=== PATIENT | female | born 1975 | race Caucasian/White ===

== ENCOUNTER 2018-05-08 08:58 | Day surgery (SDC) | payer BC ==
--- NOTE | 2018-05-08 06:41 | History and Physical - [place] ---
CHIEF COMPLAINT/HISTORY OF CHIEF COMPLAINT: This patient presents with a history of intractable lumbar radiculopathy and a spinal opioid infusion system infusing Hydromorphone and Bupivacaine. Over the last refill this patient's pump has been identified with battery depletion. She is here for pump battery change without perimeter change. PAST MEDICAL HISTORY: Noncontributory. PAST SURGICAL HISTORY: Tubal ligation, gallbladder surgery, carpal tunnel release, ankle surgery and pump implant. MEDICATIONS ON ADMISSION: List to be provided. ALLERGIES: None. FAMILY/PSYCHOSOCIAL HISTORY: Social history - Caffeine. Family history - Noncontributory. SYSTEMS REVIEW: The patient is appropriate in no acute distress. The remainder of the systems review is positive for gastroesophageal reflux, degenerative arthritis, chronic back pain, depression and anxiety disorder. PHYSICAL EXAMINATION: From chart height is 5'4", weight is 200 pounds. No vital signs. HEENT: Within normal limits. LUNGS: Clear. HEART: Regular rate and rhythm. ABDOMEN: Nontender. MUSCULOSKELETAL: Examination of the musculoskeletal system shows the pump in the left posterior gluteal margin. The incisional site is intact. There is no breakdown or cellulitis. Chronic pain pattern is low back with a lower extremity extension. There is mild motor and sensory field abnormalities of the right lower extremity. An assistive device is used for ambulation. NEUROLOGIC: Cranial nerves are intact. IMPRESSION: 1. LUMBAR RADICULOPATHY, ICD-10 CODE M54.16 AND M54.17. 2. IMPLANTED SPINAL OPIOID INFUSION SYSTEM WITH HYDROMORPHONE AND BUPIVACAINE. PLAN: The patient is here for pump battery change without perimeter change on an outpatient basis. JOB NUMBER: [id number] [facility]
[~2018-05-08 08:58] MED LIST: ACETAMINOPHEN 1,000 MG/100 ML BTL IV ONE; FAMOTIDINE 20MG TABLET PO ONE; HYDROMORPHONE HCL 0.8 GM in 0.9 % SODIUM CHLORIDE 10ML VIA 40 ML IV ONE; HYDROMORPHONE PF 2MG/ML AMP 0.008 MG in 0.9 % SODIUM CHLORIDE 10ML VIA 0.996 ML IV ONE; MECLIZINE 25 MG TABLET PO ONE; METOCLOPRAMIDE 10 MG TABLET PO ONE
[2018-05-08] MEDS ORDERED: FENTANYL PF 100MCG/2ML VIAL IV ONE (08:59)
[2018-05-08] MEDS ORDERED: 0.9 % SODIUM CHLORIDE 10 ML VIAL IVP ONE (08:59)
[2018-05-08] MEDS ORDERED: PROPOFOL 10 MG/ML VIAL IV ONE (08:59)
[2018-05-08] MEDS ORDERED: BUPIVACAINE 0.5% W/EPI MPF 30 ML VIAL IVP ONE (08:59)
[2018-05-08] MEDS ORDERED: LIDOCAINE 2% MDV (20MG/ML) 20ML VIAL IV ONE (08:59)
[2018-05-08] MEDS ORDERED: CEFAZOLIN 1G VIAL IM ONE (08:59)
[2018-05-08] MEDS ORDERED: LIDOCAINE 1% W/EPI 1:200,000 MPF 30ML SQ ONE (08:59)
[2018-05-08] MEDS ORDERED: MIDAZOLAM HCL 2MG/2ML VIAL IV ONE (08:59)
--- NOTE | 2018-05-10 14:40 | Operative Note ---
DATE: 05/08/2018. PREOPERATIVE DIAGNOSES: 1. INTRACTABLE LUMBAR RADICULOPATHY, ICD-10 CODE M54.16 AND M54.17. 2. SPINAL OPIOID INFUSION SYSTEM WITH HYDROMORPHONE WITH BATTERY DEPLETION. PROCEDURES: 1. Fluoroscopically guided removal and replacement of programmable pump at the left posterior gluteal margin. 2. Incision, subcutaneous dissection, and revision of indwelling spinal catheter. 3. Diagnostic myelography with radiologic supervision and interpretation for programming of pump to deliver hydromorphone with continuous infusion at 4.2 mg a day. SURGEON: Gregory Govea D.O. ANESTHESIA: Local sedation. ANESTHESIA PROVIDER: Carlo Cordova CRNA. INDICATIONS: This patient presents with a history of intractable lumbar radiculopathy and a spinal opioid infusion system infusing hydromorphone. Over the last number of programming and refills, battery depletion was identified. She is here for battery change. DESCRIPTION OF PROCEDURE: Intravenous lines, vital sign monitoring, and intravenous sedation. Prepped and draped with technique. The patient was positioned prone. The pump pouch at the left posterior gluteal margin was marked and infiltrated. An incision was made and subcutaneous dissection was conducted to the Dacron sleeve. The Dacron was opened, and the pump was exteriorized. A redundant, fibrosed and knotted catheter was identified in the posterior pouch. The catheter was from the pump and then the kinked, fibrosed segment was resected and removed. A new catheter segment was then interfaced and revised into the indwelling catheter. The revised segment was then interfaced to a new 40 mL programmable pump which was placed onto the field prefilled with hydromorphone. With the new pump catheter connection made , the pump was placed into the Dacron sleeve and secured to the fascia with nonabsorbable suture using a pump eyelet. With the pump in the pouch, a 24- gauge Silva needle was inserted into the access port. A total of 1.0 mL of catheter contents was aspirated, clearing the catheter of opioid and cerebrospinal fluid mixture. Diagnostic myelography was then performed. The resulting flow characteristics were noted to be smooth and linear in the space. No obstructions or redirections were identified. The catheter was fully functional. The incision was then closed with Stratafix suture with #2-0 for the fascia and #3-0 for the skin. Dermabond closure approximated the edges of the wound. The pump was then programmed to deliver by continuous infusion hydromorphone at 4.2 mg a day. All alarm values were reset. She was transported to the recovery room stable with no side effects from the procedure or the sedation. She was monitored until stable and was then discharged. DISCHARGE INSTRUCTIONS: 1. The sites are to remain clean and dry. No showering or bathing in any way that would disrupt dressings. If this happens, contact the clinic. 2. Standard medications to be resumed including Levaquin the antibiotic 500 mg once a day for 14 days. 3. The office is to contact the patient in 24 hours to set up a time in the next seven to ten days to evaluate the site. 4. All other instructions provided. 5. Spinal opioid side effects including respiratory depression, nausea, vomiting, constipation, urinary retention, lightheadedness, and rash have all been discussed and reviewed. If she experiences any of these symptoms she should contact the clinic immediately or go to a local emergency room. JOB NUMBER: [id number] cc: Carlos HERRON
== END 2018-05-08 12:10 | disposition home or self-care (01) ==
LOC: SUR 08:58
PROVIDERS: ATTEND Pain Medicine Interventional Pain Medicine
DX: M54.16 Radiculopathy, lumbar region (principal); M54.17 Radiculopathy, lumbosacral region
CPT/HCPCS: 62350; 62362; 01936; 62368; Q9967; J3010; J1170; C1755; J0690